=== PATIENT | female | born 1985 | race Caucasian/White ===

== ENCOUNTER 2017-11-16 05:35 | Emergency (ER) | payer MEDICAID ==
[2017-11-16] MEDS ORDERED: Ondansetron 4 MG Tab.DIS PO ONE (06:21)
--- NOTE | 2017-11-16 06:27 | EDM.PDOC ---
ED HPI GENERAL MEDICAL PROBLEM - General Chief Complaint: Drug or Alcohol Abuse Stated Complaint: WEAKNESS Time Seen by Provider: 11/16/17 06:00 Source of Information: Reports: Patient History Limitations: Reports: No Limitations - History of Present Illness INITIAL COMMENTS - FREE TEXT/NARRATIVE: Patsy arrives at [facility] ED with concerns for a drug exposure at an [facility] [employer] [facility] in [place], [place]. She did not eat or drink before the democr[facility], reportedly took a pill with soda that was bitter tasting about midnight, and shortly afterwards developed tingling in her hands and feet, lt headiness, sweats and weakness. There was no hallucinations, LOC, palpitations, chest pain or SOB. She left the democrat with a friend who drove her to [facility] ED. Upon arrival, she is alert, anxious, orientated, and cooperative. She took an Excedrin tab before coming. 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: G 2 P 2 Psychiatric History: Reports: Other (See Below) (has used mushrooms, cannabis, adderall in the past) - Past Surgical History GI Surgical History: Reports: Cholecystectomy ED ROS GENERAL - Review of Systems Review Of Systems: See Below Constitutional: Reports: Malaise, Weakness, Decreased Appetite HEENT: Reports: No Symptoms Respiratory: Reports: No Symptoms Cardiovascular: Reports: Lightheadedness Endocrine: Reports: No Symptoms GI/Abdominal: Reports: Nausea : Reports: No Symptoms Musculoskeletal: Reports: No Symptoms Skin: Reports: No Symptoms Neurological: Reports: Numbness, Tingling, Weakness Psychiatric: Reports: Anxiety Hematologic/Lymphatic: Reports: No Symptoms Immunologic: Reports: No Symptoms ED EXAM, GENERAL - Physical Exam Exam: See Below Exam Limited By: No Limitations General Appearance: Alert, WD/WN, Anxious, Mild Distress, Obese Eye Exam: Bilateral Eye: EOMI, Normal Inspection, PERRL Ears: Normal External Exam Nose: Normal Inspection Throat/Mouth: Normal Inspection, Normal Lips, Normal Teeth, Normal Gums, Normal Oropharynx, Normal Voice, No Airway Compromise Head: Normocephalic Neck: Normal Inspection, Supple, Non-Tender, Full Range of Motion Respiratory/Chest: No Respiratory Distress, Lungs Clear, Normal Breath Sounds, No Accessory Muscle Use, Other (tachypnea) Cardiovascular: Normal Peripheral Pulses, No Edema, No Murmur, Tachycardia GI/Abdominal: Normal Bowel Sounds, Soft, Non-Tender, No Organomegaly, No Distention, No Mass (Female) Exam: Deferred Rectal (Female) Exam: Deferred Back Exam: Normal Inspection Extremities: Normal Inspection Neurological: Alert, Oriented, CN II-XII Intact, Normal Gait, No Motor/Sensory Deficits Psychiatric: Normal Affect, Anxious Skin Exam: Warm, Dry, Intact, Normal Color, No Rash, Tattoo(s) (multiple) Lymphatic: No Adenopathy Course - Vital Signs Text/Narrative:: Following assessment at the [facility] ED, Patsy was monitored noting sinus tachycardia with VR 100-110 bmp, T 98.3 deg F, BP 129/87. Scrrening labs noted normal CBC, BMP and CPK WNL, ekg sinus tachycardia. A drug screen was positive for MDMA, Cannibis, and Amphetamines. Tingling in hands and feet with some sharp chest pains were observed, and she was administered Ativan 1 mg po x 3 doses for sxs relief. Patsy was clinically stable at time of discharge. Last Recorded V/S: Last Vital Signs Temp 36.8 C 11/16/17 05:40 Pulse 100 11/16/17 06:55 Resp 18 11/16/17 08:00 BP 122/87 11/16/17 08:00 Pulse Ox 100 11/16/17 08:00 - Orders/Labs/Meds Orders: Active Orders 24 hr Category Date Time Status EKG 12 Lead [EK] Routine Ther 11/16/17 08:09 Ordered Labs: Laboratory Tests 11/16/17 11/16/17 11/16/17 Range/Units 05:40 06:00 06:00 WBC 9.8 (4.5-12.0) X10-3/uL RBC 4.88 (3.23-5.20) x10(6)uL Hgb 13.8 (11.5-15.5) g/dL Hct 40.4 (30.0-51.3) % MCV 82.8 (80-96) fL MCH 28.2 (27.7-33.6) pg MCHC 34.1 (32.2-35.4) g/dL RDW 13.7 (11.5-15.5) % Plt Count 264 (125-369) X10(3)uL MPV 9.7 (7.4-10.4) fL Neut % (Auto) 77.9 (46-82) % Lymph % (Auto) 15.5 (13-37) % [place] % (Auto) 4.9 (4-12) % Eos % (Auto) 2 (1.0-5.0) % Baso % (Auto) 0 (0-2) % Neut # (Auto) 7.7 (1.6-8.3) # Lymph # (Auto) 1.5 (0.6-5.0) # [place] # (Auto) 0.5 (0.0-1.3) # Eos # (Auto) 0.1 (0.0-0.8) # Baso # (Auto) 0.0 (0.0-0.2) # Sodium 139 (135-145) mmol/L Potassium 3.7 (3.5-5.3) mmol/L Chloride 102 (100-110) mmol/L Carbon Dioxide 29 (21-32) mmol/L BUN 10 (7-18) mg/dL Creatinine 0.8 (0.55-1.02) mg/dL Est Cr Clr Drug Dosing 96.26 mL/min Estimated GFR (MDRD) > 60 (>60) BUN/Creatinine Ratio 12.5 (9-20) Glucose 116 (80-116) mg/dL Calcium 8.8 (8.6-10.2) mg/dL Creatine Kinase (60-160) IU/L Salicylates (2.8-20.0) mg/dL Urine Opiates Screen Negative (NEGATIVE) Ur Oxycodone Screen Negative (NEGATIVE) Ur Propoxyphene Screen Negative (NEGATIVE) Acetaminophen (10-30) ug/mL Ur Barbituates Screen Negative (NEGATIVE) Ur Tricyclics Screen Negative (NEGATIVE) Ur Phencyclidine Scrn Negative (NEGATIVE) Ur Amphetamine Screen Positive H (NEGATIVE) Urine MDMA Screen Positive H (NEGATIVE) U Benzodiazepines Scrn Negative (NEGATIVE) U Cocaine Metab Screen Negative (NEGATIVE) U Marijuana (THC) Screen Positive H (NEGATIVE) Ethyl Alcohol (<0.03) % 11/16/17 11/16/17 Range/Units 06:00 06:00 WBC (4.5-12.0) X10-3/uL RBC (3.23-5.20) x10(6)uL Hgb (11.5-15.5) g/dL Hct (30.0-51.3) % MCV (80-96) fL MCH (27.7-33.6) pg MCHC (32.2-35.4) g/dL RDW (11.5-15.5) % Plt Count (125-369) X10(3)uL MPV (7.4-10.4) fL Neut % (Auto) (46-82) % Lymph % (Auto) (13-37) % [place] % (Auto) (4-12) % Eos % (Auto) (1.0-5.0) % Baso % (Auto) (0-2) % Neut # (Auto) (1.6-8.3) # Lymph # (Auto) (0.6-5.0) # [place] # (Auto) (0.0-1.3) # Eos # (Auto) (0.0-0.8) # Baso # (Auto) (0.0-0.2) # Sodium (135-145) mmol/L Potassium (3.5-5.3) mmol/L Chloride (100-110) mmol/L Carbon Dioxide (21-32) mmol/L BUN (7-18) mg/dL Creatinine (0.55-1.02) mg/dL Est Cr Clr Drug Dosing mL/min Estimated GFR (MDRD) (>60) BUN/Creatinine Ratio (9-20) Glucose (80-116) mg/dL Calcium (8.6-10.2) mg/dL Creatine Kinase 110 (60-160) IU/L Salicylates 5.1 (2.8-20.0) mg/dL Urine Opiates Screen (NEGATIVE) Ur Oxycodone Screen (NEGATIVE) Ur Propoxyphene Screen (NEGATIVE) Acetaminophen < 2 L (10-30) ug/mL Ur Barbituates Screen (NEGATIVE) Ur Tricyclics Screen (NEGATIVE) Ur Phencyclidine Scrn (NEGATIVE) Ur Amphetamine Screen (NEGATIVE) Urine MDMA Screen (NEGATIVE) U Benzodiazepines Scrn (NEGATIVE) U Cocaine Metab Screen (NEGATIVE) U Marijuana (THC) Screen (NEGATIVE) Ethyl Alcohol < 0.03 (<0.03) % Meds: Medications Discontinued Medications Generic Name Dose Route Start Last Admin Trade Name Freq PRN Reason Stop Dose Admin Lorazepam 1 mg 11/16/17 06:52 11/16/17 06:55 Ativan PO 11/16/17 06:53 1 mg ONETIME ONE Administration Lorazepam 1 mg 11/16/17 07:21 11/16/17 07:31 Ativan PO 11/16/17 07:22 1 mg ONETIME ONE Administration Lorazepam 1 mg 11/16/17 08:10 11/16/17 08:22 Ativan PO 11/16/17 08:11 1 mg ONETIME ONE Administration Ondansetron HCl 4 mg 11/16/17 06:21 11/16/17 06:26 Zofran Odt PO 11/16/17 06:22 4 mg ONETIME ONE Administration Departure - Departure Time of Disposition: 09:44 Disposition: Home, Self-Care 01 Condition: Fair Clinical Impression: Drug abuse - Discharge Information *PRESCRIPTION DRUG MONITORING PROGRAM REVIEWED*: Not Applicable *COPY OF PRESCRIPTION DRUG MONITORING REPORT IN PATIENT NORTH: Not Applicable Referrals: Valentino Zhu MD [Primary Care Provider] - Forms: ED Department Discharge - Problem List & Annotations (1) Drug abuse SNOMED Code(s): 23438496 Code(s): F19.10 - OTHER PSYCHOACTIVE SUBSTANCE ABUSE, UNCOMPLICATED Status : Acute Current Visit: Yes Annotation/Comment:: Patsy obtained a cab ride home in [place]. Her spouse did not return calls to provide collateral information. She is advised no work today, consider CD evaluation for drug abuse , and follow up with PCP. - Problem List Review Problem List Initiated/Reviewed/Updated: Yes - My Orders Last 24 Hours: My Active Orders 11/16/17 08:09 EKG 12 Lead [EK] Routine - Assessment/Plan Last 24 Hours: My Active Orders 11/16/17 08:09 EKG 12 Lead [EK] Routine Plan: Follow up with PCP.
[2017-11-16] MEDS ORDERED: LORazepam 1 MG Tab PO ONE ×3 (06:52→08:10)
[2017-11-16 08:27] LABS: ACETAMINOPHEN < 2 ug/mL (10-30)
== END 2017-11-16 10:00 | disposition home or self-care (01) ==
LOC: FB.ED 05:35
DX: F19.10 Other psychoactive substance abuse, uncomplicated (principal); Z88.5 Allergy status to narcotic agent
CPT/HCPCS: 36415; 80048; 80305; 82550; 85025; 93005; 99285; A9270; G0480

== ENCOUNTER 2017-11-17 19:14 | Emergency (ER) | payer MEDICAID ==
[2017-11-17] MEDS ORDERED: Ondansetron 4 MG/2 ML SDV IVPUSH ONE (20:05)
[2017-11-17] MEDS ORDERED: Ketorolac 60 MG/2 ML SDV IM ONE (20:05)
[2017-11-17] MEDS ORDERED: Ketorolac 30 MG/ML SDV IVPUSH ONE (20:07)
[2017-11-17] MEDS ORDERED: Sodium Chloride 0.9% 1,000 ML IV SCH (20:15)
[2017-11-17] MEDS ORDERED: Dextrose 5%-Lactated Ringers 1,000 ML IV SCH (22:00)
--- NOTE | 2017-11-17 22:43 | EDM.PDOC ---
ED HPI GENERAL MEDICAL PROBLEM - General Chief Complaint: Chest Pain Stated Complaint: CHEST PAIN Time Seen by Provider: 11/17/17 19:32 Source of Information: Reports: Patient History Limitations: Reports: No Limitations - History of Present Illness INITIAL COMMENTS - FREE TEXT/NARRATIVE: 32 YEAR ,OLD SMOKING OBESE, KNOW TO BE CHEMICALLY DEPENDENT WENT TO AND [facility] 11/16/17 THEN WAS SEEN 6 AM THIS MORNING BY DR BURDEN FOR TACHYCARDIA, TINGLING OF HER ARMS,IS SOB AND HAD CARRANZA. SHE CONTINUES TO HAVE THE SAME SYMPTOMS. SHE WAS GIVEN 3 DOSES OF ATIVAN IN THE ED THEN SENT HOME. SHE AT THAT TIME DID NOT HAVE LEFT CHEST WALL PAIN. NOW SHE "DOESN'T FEEL RIGHT, AND "FEELS SICK. FEEL LIKE HER CHEST IS GOING TO EXPLODE.... AND IS N HUNGRY FOR AIR." SHE FEEL "HOT HER BODY ISHOT AND HER EARS ARE HOT" SHE WAS GIVEN "A PILL " AT THE [facility] BUT DOES NOT KNOW WHAT IT WAS.YEARS AGO SHE HAD CHEST PAIN AND WAS SEEN IN A [facility] IN [place] AND WAS NOT ADMITTED, SMOKES 1/4 PACK A DAY FOR 20 YEARS (10 PACK YEARS)"LAST TIME SHE HAS PAIN IN HER CHEST WAS FEBRUARY 2017 NO CARDIAC FINDINGS NOTED AT THAT TIME. 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 History: G 2 P 2 Psychiatric History: Reports: Other (See Below) - Past Surgical History GI Surgical History: Reports: Cholecystectomy Social & Family History - Family History Family Medical History: Noncontributory - Tobacco Use Smoking Status *Q: Current Every Day Smoker Years of Tobacco use: 10 Packs/Tins Daily: 0.5 - Caffeine Use Caffeine Use: Reports: Coffee - Recreational Drug Use Recreational Drug Use: No ED ROS GENERAL - Review of Systems Review Of Systems: See Below Constitutional: Reports: No Symptoms HEENT: Reports: No Symptoms Respiratory: Reports: No Symptoms, Shortness of Breath Cardiovascular: Reports: No Symptoms, Chest Pain Endocrine: Reports: No Symptoms GI/Abdominal: Reports: No Symptoms : Reports: No Symptoms, Other (WAS GIVEN SHOTO ROCEPHINNAD AZITHROMYCIN( L THE LATETER SHE HAS NOT FILLED TH RX)) Musculoskeletal: Reports: Other (CHEST WALL PAIN) Neurological: Reports: Paresthesia Psychiatric: Reports: No Symptoms ED EXAM, GENERAL - Physical Exam Exam: See Below Free Text/Narrative:: PT HAS MODERATE LEFT ANTERIOR PECTORAL REGION CHEST WALL PAIN AND MORE PAIN AT THE LEFT STERNOCHONDRAL JOINTS 3,4,5,6,7 ON PALPATION NO DEEP CHEST PAIN NO ECCHYMOSIS OR BRUISING Exam Limited By: No Limitations General Appearance: Alert, Moderate Distress, Obese Eye Exam: Bilateral Eye: Normal Fundi, Normal Inspection Ears: Normal External Exam, Normal Canal, Hearing Grossly Normal, Normal TMs, Other (HX OF TINNITUS -UNCHANGED) Nose: Normal Inspection, Normal Mucosa, No Blood Throat/Mouth: Normal Inspection, Normal Lips, Normal Teeth, Normal Gums, Normal Oropharynx, Normal Voice, No Airway Compromise, Other (DRY ORAL MUCOSA) Head: Atraumatic, Normocephalic Neck: Normal Inspection Cardiovascular: Normal Peripheral Pulses, Regular Rate, Rhythm, No Edema, No Gallop, No JVD, No Murmur Peripheral Pulses: 1+: Radial (L), Radial (R) GI/Abdominal: Normal Bowel Sounds, Soft, Non-Tender, No Organomegaly, No Distention, No Abnormal Bruit (Female) Exam: Other (DEFERRED) Rectal (Female) Exam: Deferred Back Exam: Normal Inspection, Full Range of Motion Neurological: Alert, Oriented, CN II-XII Intact, Normal Cognition, Normal Gait, Normal Reflexes, No Motor/Sensory Deficits Psychiatric: Normal Affect Skin Exam: Warm, Dry, Intact Lymphatic: No Adenopathy Course - Vital Signs Last Recorded V/S: Last Vital Signs Temp 37.2 C 11/17/17 19:14 Pulse 82 11/17/17 21:30 Resp 20 11/17/17 19:14 BP 99/60 11/17/17 21:30 Pulse Ox 100 11/17/17 19:14 - Orders/Labs/Meds Orders: Active Orders 24 hr Category Date Time Status EKG Documentation Completion [RC] ASDIRECTED Care 11/17/17 20:03 Active CXR [Chest 2V] [CR] Stat Exams 11/17/17 20:04 Taken DRUG SCREEN, URINE ALERE [URCHEM] Stat Lab 11/17/17 20:38 Ordered UA W/MICROSCOPIC [URIN] Stat Lab 11/17/17 20:38 Ordered Dextrose 5%-Lactated Ringers 1,000 ml Med 11/17/17 22:00 Active IV ASDIRECTED Sodium Chloride 0.9% [Normal Saline] 1,000 ml Med 11/17/17 20:15 Active IV ASDIRECTED EKG 12 Lead [EK] Routine Ther 11/17/17 20:03 Ordered Medication Orders Sodium Chloride (Normal Saline) 1,000 mls @ 1,000 mls/hr IV ASDIRECTED SOFIYA Last Admin: 11/17/17 20:19 Dose: 1,000 mls/hr Dextrose/Lactated Ringer's (Dextrose 5%-Lactated Ringers) 1,000 mls @ 999 mls/ hr IV ASDIRECTED SOFIYA Last Admin: 11/17/17 21:50 Dose: 999 mls/hr Labs: Laboratory Tests 11/17/17 11/17/17 11/17/17 Range/Units 20:20 20:20 20:20 WBC 8.2 (4.5-12.0) X10-3/uL RBC 4.45 (3.23-5.20) x10(6)uL Hgb 12.8 (11.5-15.5) g/dL Hct 37.3 (30.0-51.3) % MCV 84.0 (80-96) fL MCH 28.8 (27.7-33.6) pg MCHC 34.3 (32.2-35.4) g/dL RDW 14.0 (11.5-15.5) % Plt Count 242 (125-369) X10(3)uL MPV 9.2 (7.4-10.4) fL Neut % (Auto) 69.0 (46-82) % Lymph % (Auto) 22.2 (13-37) % [place] % (Auto) 5.4 (4-12) % Eos % (Auto) 3 (1.0-5.0) % Baso % (Auto) 1 (0-2) % Neut # (Auto) 5.7 (1.6-8.3) # Lymph # (Auto) 1.8 (0.6-5.0) # [place] # (Auto) 0.4 (0.0-1.3) # Eos # (Auto) 0.2 (0.0-0.8) # Baso # (Auto) 0.1 (0.0-0.2) # D-Dimer, Quantitative 0.27 (0.0-0.59) mg/LFEU Sodium (135-145) mmol/L Potassium (3.5-5.3) mmol/L Chloride (100-110) mmol/L Carbon Dioxide (21-32) mmol/L BUN (7-18) mg/dL Creatinine (0.55-1.02) mg/dL Est Cr Clr Drug Dosing mL/min Estimated GFR (MDRD) (>60) BUN/Creatinine Ratio (9-20) Glucose (80-116) mg/dL Calcium (8.6-10.2) mg/dL Total Bilirubin (0.1-1.3) mg/dL AST (5-25) IU/L ALT (12-36) U/L Alkaline Phosphatase (56-112) IU/L Troponin I < 0.017 L (<0.017-0.056) ng/mL Total Protein (6.0-8.0) g/dL Albumin (3.5-5.2) g/dL Globulin g/dL Albumin/Globulin Ratio Urine Color (YELLOW) Urine Appearance (CLEAR) Urine pH (5.0-6.5) Ur Specific Brinkley (1.010-1.025) Urine Protein (NEGATIVE) mg/dL Urine Glucose (UA) (NEGATIVE) mg/dL Urine Ketones (NEGATIVE) mg/dL Urine Occult Blood (NEGATIVE) Urine Nitrite (NEGATIVE) Urine Bilirubin (NEGATIVE) Urine Urobilinogen (NEGATIVE) mg/dL Ur Leukocyte Esterase (NEGATIVE) Urine RBC (0) Urine WBC (0) Ur Squamous Epith Cells (NS,R,O) Urine Bacteria (NS) Urine Opiates Screen (NEGATIVE) Ur Oxycodone Screen (NEGATIVE) Ur Propoxyphene Screen (NEGATIVE) Ur Barbituates Screen (NEGATIVE) Ur Tricyclics Screen (NEGATIVE) Ur Phencyclidine Scrn (NEGATIVE) Ur Amphetamine Screen (NEGATIVE) Urine MDMA Screen (NEGATIVE) U Benzodiazepines Scrn (NEGATIVE) U Cocaine Metab Screen (NEGATIVE) U Marijuana (THC) Screen (NEGATIVE) 11/17/17 11/17/17 11/17/17 Range/Units 20:20 20:38 20:38 WBC (4.5-12.0) X10-3/uL RBC (3.23-5.20) x10(6)uL Hgb (11.5-15.5) g/dL Hct (30.0-51.3) % MCV (80-96) fL MCH (27.7-33.6) pg MCHC (32.2-35.4) g/dL RDW (11.5-15.5) % Plt Count (125-369) X10(3)uL MPV (7.4-10.4) fL Neut % (Auto) (46-82) % Lymph % (Auto) (13-37) % [place] % (Auto) (4-12) % Eos % (Auto) (1.0-5.0) % Baso % (Auto) (0-2) % Neut # (Auto) (1.6-8.3) # Lymph # (Auto) (0.6-5.0) # [place] # (Auto) (0.0-1.3) # Eos # (Auto) (0.0-0.8) # Baso # (Auto) (0.0-0.2) # D-Dimer, Quantitative (0.0-0.59) mg/LFEU Sodium 139 (135-145) mmol/L Potassium 3.8 (3.5-5.3) mmol/L Chloride 105 (100-110) mmol/L Carbon Dioxide 28 (21-32) mmol/L BUN 14 (7-18) mg/dL Creatinine 0.8 (0.55-1.02) mg/dL Est Cr Clr Drug Dosing 92.53 mL/min Estimated GFR (MDRD) > 60 (>60) BUN/Creatinine Ratio 17.5 (9-20) Glucose 80 (80-116) mg/dL Calcium 8.8 (8.6-10.2) mg/dL Total Bilirubin 0.2 (0.1-1.3) mg/dL AST 10 (5-25) IU/L ALT 20 (12-36) U/L Alkaline Phosphatase 70 (56-112) IU/L Troponin I (<0.017-0.056) ng/mL Total Protein 7.6 (6.0-8.0) g/dL Albumin 3.5 (3.5-5.2) g/dL Globulin 4.1 g/dL Albumin/Globulin Ratio 0.9 Urine Color Yellow (YELLOW) Urine Appearance Clear (CLEAR) Urine pH 5.0 (5.0-6.5) Ur Specific Brinkley 1.020 (1.010-1.025) Urine Protein Negative (NEGATIVE) mg/dL Urine Glucose (UA) Normal (NEGATIVE) mg/dL Urine Ketones Negative (NEGATIVE) mg/dL Urine Occult Blood Negative (NEGATIVE) Urine Nitrite Negative (NEGATIVE) Urine Bilirubin Negative (NEGATIVE) Urine Urobilinogen Normal (NEGATIVE) mg/dL Ur Leukocyte Esterase Negative (NEGATIVE) Urine RBC 0-5 (0) Urine WBC 0-5 (0) Ur Squamous Epith Cells Few H (NS,R,O) Urine Bacteria Few H (NS) Urine Opiates Screen Negative (NEGATIVE) Ur Oxycodone Screen Negative (NEGATIVE) Ur Propoxyphene Screen Negative (NEGATIVE) Ur Barbituates Screen Negative (NEGATIVE) Ur Tricyclics Screen Negative (NEGATIVE) Ur Phencyclidine Scrn Negative (NEGATIVE) Ur Amphetamine Screen Positive H (NEGATIVE) Urine MDMA Screen Negative (NEGATIVE) U Benzodiazepines Scrn Positive H (NEGATIVE) U Cocaine Metab Screen Negative (NEGATIVE) U Marijuana (THC) Screen Positive H (NEGATIVE) Meds: Medications Generic Name Dose Route Start Last Admin Trade Name Freq PRN Reason Stop Dose Admin Sodium Chloride 1,000 mls @ 1,000 mls/hr 11/17/17 20:15 11/17/17 20:19 Normal Saline IV 1,000 mls/hr ASDIRECTED SOFIYA Administration Dextrose/Lactated Ringer's 1,000 mls @ 999 mls/hr 11/17/17 22:00 11/17/17 21: 50 Dextrose 5%-Lactated Ringers IV 999 mls/hr ASDIRECTED SOFIYA Administration Discontinued Medications Generic Name Dose Route Start Last Admin Trade Name Micaela PRN Reason Stop Dose Admin Ketorolac Tromethamine 60 mg 11/17/17 20:05 11/17/17 20:17 Toradol IM 11/17/17 20:06 Not Given ONETIME ONE Ketorolac Tromethamine 30 mg 11/17/17 20:07 11/17/17 20:19 Toradol IVPUSH 11/17/17 20:08 30 mg ONETIME ONE Administration Ondansetron HCl 4 mg 11/17/17 20:05 11/17/17 20:19 Zofran IVPUSH 11/17/17 20:06 4 mg ONETIME ONE Administration Departure - Departure Time of Disposition: 20:00 Disposition: Home, Self-Care 01 Clinical Impression: Chest wall pain, Chemical abuse, Dehydration Obesity Qualifiers: Obesity type: due to excess calories Obesity classification: adult class 3 ( BMI >= 40) Serious obesity comorbidity presence: without serious comorbidity Body mass index: BMI 40.0-44.9 Qualified Code(s): E66.01 - Morbid (severe) obesity due to excess calories; Z68.41 - Body mass index (BMI) 40.0-44.9, adult Contusion of left chest wall Qualifiers: Encounter type: subsequent encounter Qualified Code(s): S20.212D - Contusion of left front wall of thorax, subsequent encounter Instructions: Chemical Dependency, Chest Wall Pain, [id number], Dehydration, Adult, [id number] Referrals: Valentino Zhu MD [Primary Care Provider] - Forms: ED Department Discharge Additional Instructions: YOU ARE STILL DEHYDRATED FROM THE [facility] . I DO NOT HAVE AN EXPLANATION FOR THE TINGLEIN BUT WHATEVER THE PILL WAS THAT YOU HAD AT THE [facility] MAY HAVE SOMETHING TO DO WITH THE TINGLING SYMPTOMS THE RIGHT ANTERIOR CHEST WALL PAIN PROBABLY IS THE RESULT OF SOME KIND OF TRAUMA THAT MAY HAVE OCCUR AT THE [facility] IT WILL TAKE SEVERAL DAY TO UP TO SEVERAL WEEKS FOR THE CHEST WALL PAIN TO GO AWAY IF THIS IS TRUELY TRAUMATIC COSTOCHONDRITIS SEE YOU MD NEEDED IN THE NEXT 1-2 WEEKS USE 500 MG OF IBUPROFEN TOGETHER WITH 10OO MG OF TYELNOL EVERY 6 HOURS - My Orders Last 24 Hours: My Active Orders 11/17/17 20:03 EKG Documentation Completion [RC] ASDIRECTED EKG 12 Lead [EK] Routine 11/17/17 20:04 CXR [Chest 2V] [CR] Stat 11/17/17 20:15 Sodium Chloride 0.9% [Normal Saline] 1,000 ml IV ASDIRECTED 11/17/17 20:38 DRUG SCREEN, URINE ALERE [URCHEM] Stat UA W/MICROSCOPIC [URIN] Stat 11/17/17 22:00 Dextrose 5%-Lactated Ringers 1,000 ml IV ASDIRECTED - Assessment/Plan Last 24 Hours: My Active Orders 11/17/17 20:03 EKG Documentation Completion [RC] ASDIRECTED EKG 12 Lead [EK] Routine 11/17/17 20:04 CXR [Chest 2V] [CR] Stat 11/17/17 20:15 Sodium Chloride 0.9% [Normal Saline] 1,000 ml IV ASDIRECTED 11/17/17 20:38 DRUG SCREEN, URINE ALERE [URCHEM] Stat UA W/MICROSCOPIC [URIN] Stat 11/17/17 22:00 Dextrose 5%-Lactated Ringers 1,000 ml IV ASDIRECTED
--- NOTE | 2017-11-22 14:33 | CR ---
INDICATION: Left chest wall pain, deep chest pain after drug abuse, denies IV use. CHEST: PA and lateral views of the chest were obtained 11/17/2017 and revealed evidence of exogenous obesity. The heart and mediastinum were unremarkable. Bony thorax appeared to be intact. A definite active infiltrate or effusion was not identified. Markings are somewhat heavy, apparently due to poor inspirations. Overlying EKG leads are noted. IMPRESSION: No active disease, except for evidence of exogenous obesity. MTDD
== END 2017-11-17 22:52 | disposition home or self-care (01) ==
LOC: FB.ED 19:14
DX: R07.89 Other chest pain (principal); E86.0 Dehydration; F19.10 Other psychoactive substance abuse, uncomplicated; S20.212D Contusion of left front wall of thorax, subsequent encounter; E66.01 Morbid (severe) obesity due to excess calories; Z68.41 Body mass index [BMI] 40.0-44.9, adult; Z88.5 Allergy status to narcotic agent; F17.210 Nicotine dependence, cigarettes, uncomplicated
CPT/HCPCS: 36415; 71046; 80053; 80305-QW; 81001; 84484; 85025; 85379; 93005; 93010; 96361; 96374; 96375; 99284; 99285; J1885; J2405; J7030; J7042